=== PATIENT | female | born 2000 | race Caucasian/White ===

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

== ENCOUNTER 2022-06-20 18:01 | Emergency (ER) | payer OTHER ==
[~2022-06-20] VITALS: Ht 162.6 cm; Wt 65.8 kg
[~2022-06-20 18:01] MED LIST changes: +MAG-27 PO; +ONDA-188 SL; -ONDA-24 PO
[2022-06-20 18:19] VITALS: BP 118/80
[2022-06-20] MEDS ORDERED: TETRACAINE HCL/PF 0.5% OPTH 4 ML BTL OP ONE (18:55)
[2022-06-20] MEDS ORDERED: FLUORESCEIN OPTH STRIP 1 MG OP ONE (18:55)
--- NOTE | 2022-06-20 19:15 | NUR ---
PA Schulte examining patient.
[2022-06-20] MEDS ORDERED: GENT3OIN12 OP (19:35)
[2022-06-20 19:45] VITALS: BP 118/80
== END 2022-06-20 19:45 | disposition home or self-care (01) ==
LOC: MED 18:01
DX: H57.13 Ocular pain, bilateral (principal)
CPT/HCPCS: 99283